=== PATIENT | female | born 1950 | race Caucasian/White ===

== ENCOUNTER 2017-05-01 02:10 | Inpatient (IN) | payer MEDICARE, MEDICAID ==
--- NOTE | 2017-04-28 16:46 | HISTORY AND PHYSICAL ---
DATE OF ADMISSION: May 01, 2017 IDENTIFICATION AND CHIEF COMPLAINT Jenn is a 67-year-old woman with the chief complaint of bilateral knee pain and disability. HISTORY OF PRESENT ILLNESS The patient has a longstanding history of progressive symptoms and disability related to end-stage knee arthritis. Surgery is indicated to relieve pain and improve function after failure of nonoperative measures. PAST MEDICAL HISTORY Notable for generally good medical health. PAST SURGICAL HISTORY Notable for times three. CURRENT MEDICATIONS * Cerebrex 100 mg b.i.d. * Tramadol as needed. * Ambien 10 mg at bedtime for sleep. ALLERGIES She has no true drug allergies. FAMILY HISTORY Noncontributory. SOCIAL HISTORY Negative for tobacco use. She drinks alcohol two to three beverages per week. She denies abuse. REVIEW OF SYSTEMS Negative. PHYSICAL EXAMINATION GENERAL: This is a well-developed, well-nourished female who appears stated age. HEENT: Normocephalic, atraumatic. NECK: Supple. LUNGS: Clear. HEART: Regular. ABDOMEN: Soft. ORTHOPEDIC: Both knees have effusions and crepitus, stiff at end-range. Gross stability with good extension and flexion intact. DIAGNOSTIC DATA Radiographs demonstrate end-stage DJD in both knees. ASSESSMENT Bilateral knee end-stage degenerative joint disease, progressive, painful, and debilitating, refractory to conservative care. PLAN Per patient request, we are going to proceed with single-stage bilateral knee replacements. The nature of this procedure, risks, benefits, and the anticipated rehab course were reviewed, as well as the relative risks and benefits of single knee replacement which is staged versus doing both at the same time. The risks of the procedure and treatment are not limited to , major medical or anesthetic complications, infection, neurovascular injury, blood transfusion, stiffness, scarring, fracture, tendon rupture, instability, implant loosening, migration, or failure, persistent or recurrent pain, need for additional surgery, and others unforeseen. She understands and wishes to proceed. Signed permit is placed in the chart. No guarantees were given or implied. ADRIAN
[2017-04-30 15:33] LABS: INR 0.99
[2017-05-01] VITALS (7 sets, daily range): BP systolic 95–162; BP diastolic 61–129
[~2017-05-01] VITALS: Ht 170.2 cm; Wt 83.5 kg
[~2017-05-01 02:10] MED LIST: CELE-1 PO; MULT1CAP59 PO; TRAM-420 PO; ZOLP-350 PO
[2017-05-01] MEDS ORDERED: LIDOCAINE MPF 1% 5 ML VIAL ONE (10:41)
[2017-05-01] MEDS ORDERED: DEXAMETHASONE SOD 4 MG/ML VIAL ONE (10:41)
[2017-05-01] MEDS ORDERED: ONDANSETRON 4 MG/2 ML VIAL ONE (10:41)
[2017-05-01] MEDS ORDERED: MORPHINE PF 5 MG/10 ML AMP ONE (10:41)
[2017-05-01] MEDS ORDERED: PROPOFOL EMUL(*) 10MG/ML 20 ML 20 ML ONE (10:41)
[2017-05-01] MEDS ORDERED: fentaNYL CITR 100 MCG/2 ML AMP ONE ×2 (10:42→14:25)
[2017-05-01] MEDS ORDERED: DEXTROSE 5% IV ONE (12:15)
[2017-05-01] MEDS ORDERED: LIDOCAINE/SOD BICARB 8.4% SYR ID ONE (12:15)
[2017-05-01] MEDS ORDERED: MIDAZOLAM 2 MG/2 ML VIAL IVP PRN (12:15)
[2017-05-01] MEDS ORDERED: TRANEXAMIC AC 1000 MG/10ML SDV 1,000 MG in DEXTROSE 5% 50 ML BAG 50 ML IV ONE (12:15)
[2017-05-01] MEDS ORDERED: FAMOTIDINE 20 MG TAB PO ONE (12:15)
[2017-05-01] MEDS ORDERED: TRANEXAMIC AC IV ONE (12:15)
[2017-05-01] MEDS ORDERED: ceFAZolin(*) 2GM/D5W 50ML 50 ML IVPB ONE (12:15)
[2017-05-01] MEDS ORDERED: cloNIDine EPIDUR INJ 100MCG/ML 40 MCG, ROPIVACAINE 0.5% 20 ML VIAL 25 ML, EPINEPHrine H... INJ ONE ×2 (12:15)
[2017-05-01] MEDS ORDERED: NORMOSOL R SOLN(*) 1000 ML BAG 1,000 ML IV PRN ×2 (12:15→16:15)
[2017-05-01] MEDS ORDERED: ACETAMINOPHEN(*)1000 MG/100 ML 100 ML IVPB ONE (12:33)
[2017-05-01] MEDS ORDERED: LACTATED RINGER 3000 ML BAG IR ONE (13:36)
--- NOTE | 2017-05-01 16:07 | RADIOLOGY IMAGING REPORT ---
FAC[place] [facility] [place]IENT NAME: Jenn Esparza : 1950 MR: [id number] V: [id number] EXAM DATE: ORDERING PHYSICIAN: CASEY HOLBROOK TECHNOLOGIST: Location: [facility] [place] Patient: Jenn Esparza : 1950 Visit/Account:[id number] Date of Sevice: 05/01/2017 KNEE LIMITED LEFT, KNEE LIMITED RIGHT Indication: Bilateral postoperative knees Comparison: None available Findings: Patient is undergone bilateral knee replacements. On the left, three part total knee arthroplasty sh ows normal postoperative changes. Components appear well seated. On the right, similar postoperativ e changes are present from three part replacement. Components are well seated. IMPRESSION: 1. Uncomplicated appearing bilateral three-part TKA Report Dictated By: Maik Rodriguez at 05/01/2017 4:02 PM Report E-Signed By: Maik Rodriguez at 05/01/2017 4:03 PM WSN:[id number]
--- NOTE | 2017-05-01 16:07 | RADIOLOGY IMAGING REPORT ---
FACILITY: PATIENT NAME: Jenn Esparza : 1950 MR: [id number] V: [id number] EXAM DATE: ORDERING PHYSICIAN: CASEY HOLBROOK TECHNOLOGIST: Location: [facility] [place] Patient: Jenn Esparza : 1950 Visit/Account:[id number] Date of Sevice: 05/01/2017 KNEE LIMITED LEFT, KNEE LIMITED RIGHT Indication: Bilateral postoperative knees Comparison: None available Findings: Patient is undergone bilateral knee replacements. On the left, three part total knee arthroplasty sh ows normal postoperative changes. Components appear well seated. On the right, similar postoperativ e changes are present from three part replacement. Components are well seated. IMPRESSION: 1. Uncomplicated appearing bilateral three-part TKA Report Dictated By: Maik Rodriguez at 05/01/2017 4:02 PM Report E-Signed By: Maik Rodriguez at 05/01/2017 4:03 PM WSN:[id number]
[2017-05-01] MEDS ORDERED: BENZOCAINE/MENTHOL 1 EACH LOZG PO PRN (16:15)
[2017-05-01] MEDS ORDERED: ACETAMINOPHEN 325 MG TAB PO PRN (16:15)
[2017-05-01] MEDS ORDERED: diphenhydrAMINE 25 MG CAP PO PRN (16:15)
[2017-05-01] MEDS ORDERED: diphenhydrAMINE 50 MG/ML VIAL IVP PRN (16:15)
[2017-05-01] MEDS ORDERED: BISACODYL 10 MG SUPP PR PRN (16:15)
[2017-05-01] MEDS ORDERED: FLUSH 10 ML SYR IVP PRN (16:15)
[2017-05-01] MEDS ORDERED: MAGNESIUM HYDROXIDE* 30ML UDCP PO PRN (16:15)
[2017-05-01] MEDS: CELECOXIB 200 MG CAP PO SCH ×2 (17:00→21:30)
[2017-05-01] MEDS: PROMETHAZINE 25 MG/ML 1 ML AMP IVP PRN (19:13)
[2017-05-01] MEDS: ceFAZolin 1 GM VIAL IVP SCH (20:49)
[2017-05-01] MEDS: APAP/HYDROCODONE 325/7.5 TAB PO PRN ×2 (20:49→21:46)
--- NOTE | 2017-05-01 22:37 | Hospitalist Progress Note ---
Subjective Progress Notes Subjective No cp/sob. No concerns from patient or staff. 2350cc of crystalloid, TXA dexamethasone and ephedrine given intra-op. Physical Exam Vital Signs Date Time Temp Pulse Resp B/P (MAP) Pulse Ox O2 Delivery O2 Flow Rate FiO2 05/01/17 17:00 57 12 99 05/01/17 16:58 98.1 128/71 (90) Nasal Cannula 2.0 Intake and Output 05/02/17 07:00 Intake Total 2550 ml Output Total 250 ml Balance 2300 ml Intake IV Total 2550 ml Output Emesis 250 ml # Voids 1 General Appearance: Alert, Awake, No Acute Distress Cardiovascular: Regular Rate and Rhythm Respiratory: Clear to Auscultation Extremities: No Edema Assessment and Plan Problems: (1) Status post knee replacement Status: Acute Assessment & Plan: No CV/pulmonary issues. The patient denies any h/o DVT/PE. The patient to be on ASA 325mg a day for blood clot prevention for 30 days after surgery. (2) Insomnia Status: Chronic Assessment & Plan: Continue Ambien prn. Problem Qualifiers (1) Status post knee replacement: Laterality: bilateral Qualified Codes: Z96.653 - Presence of artificial knee joint, bilateral JENNIFER TELLES MD May 01, 2017 22:37
[2017-05-01] MEDS: ZOLPIDEM TARTRATE 5 MG TAB PO PRN (22:47)
[2017-05-02 02:35] VITALS: BP 95/53
[2017-05-02] MEDS: APAP/HYDROCODONE 325/7.5 TAB PO PRN ×4 (02:37→15:59)
[2017-05-02] MEDS: ceFAZolin 1 GM VIAL IVP SCH ×2 (04:45→13:55)
[2017-05-02] MEDS ORDERED: MORPHINE 2 MG/ML SYR IVP ONE (07:15)
[2017-05-02] MEDS: FAMOTIDINE 20 MG TAB PO SCH ×2 (07:25→20:42)
[2017-05-02] MEDS: CELECOXIB 200 MG CAP PO SCH ×2 (07:25→17:19)
[2017-05-02] MEDS: DIAZEPAM 5 MG TAB PO PRN ×2 (07:25→13:27)
[2017-05-02 07:29] VITALS: BP 111/64
--- NOTE | 2017-05-02 07:41 | Hospitalist Progress Note ---
Subjective Progress Notes Subjective Pain control is not that good. She says the oral meds do not work as well as the IV. She would like to use another dose or two of IV med. Aspirin bothers her stomach in the dose of 325 mf daily and has ordered 81 mg po bid in addition to pepcid 20 mg po daily. Physical Exam Vital Signs Date Time Temp Pulse Resp B/P (MAP) Pulse Ox O2 Delivery O2 Flow Rate FiO2 05/02/17 07:29 97.7 68 16 111/64 (80) 93 Room Air 05/02/17 02:35 1.0 General Appearance: Alert, Awake, No Acute Distress, Afebrile Cardiovascular: Regular Rate and Rhythm Respiratory: Clear to Auscultation Extremities: Other (No evidence for TP.) Psych: Alert & Oriented X3, Appropriate Mood & Affect Result Diagram: 05/02/17 0611 05/02/17 0611 Assessment and Plan Problems: (1) Status post knee replacement Status: Acute Assessment & Plan: No CV/pulmonary issues. The patient denies any h/o DVT/PE. Aspirin has raul changed to 81 mg po bid in deference to GI tract and pepcid 20 mg po daily for acid reduction. Pain not well controlled so will use one dose of morphine 2mg IV then back to orals. Check Hgb this morning since she had bilateral knee replacements done. (2) Insomnia Status: Chronic Assessment & Plan: Continue Ambien prn. Time Spent on Plan of Care: < 30 min Exam Sepsis Risk: No Definite Risk Problem Qualifiers (1) Status post knee replacement: Laterality: bilateral Qualified Codes: Z96.653 - Presence of artificial knee joint, bilateral JOSÉ MANUEL MERINO MD FACP May 02, 2017 07:41
[2017-05-02] MEDS: ASPIRIN 81 MG ENTERIC COATED PO SCH ×2 (08:13→17:19)
--- NOTE | 2017-05-02 08:28 | LEVENE TKA ---
EVENT DATE: May 01, 2017 SURGEON: Jose Mathew MD ANESTHESIOLOGIST: Randy Stanton MD ANESTHESIA: General plus spinal. SENIOR BENEFITS ANALYST: Lang Wallace PA-C PREOPERATIVE DIAGNOSIS Bilateral knee degenerative joint disease. POSTOPERATIVE DIAGNOSIS Bilateral knee degenerative joint disease. PROCEDURE PERFORMED Bilateral single stage total knee arthroplasty. ESTIMATED BLOOD LOSS Minimal. DRAINS None. SPECIMENS None. COMPLICATIONS No apparent. TOURNIQUET TIME 46 minutes on the left, 48 minutes on the right. IMPLANTS USED On the left are Abrahan Triathlon knee system, size 4, left PS femur size 4, standard tibial baseplate, 33 mm universal symmetric all polyethylene patella button and a 13 mm PS tibial tray liner. Polyethylene is X3. On the right, we have a 4 right PS femur, 4 standard tibial baseplate, 33 mm universal symmetric all polyethylene patella button and a 13 mm PS tibial tray liner. INDICATIONS The patient has intractable pain and disability related to end-stage knee arthritis in both knees. Surgery is indicated to relieve symptoms after failure of nonoperative measures. DESCRIPTION OF PROCEDURE The patient was taken to the operating room and placed supine on the operating table. General anesthesia was induced after spinal block was administered by the anesthesiologist. Antibiotics were administered IV. Both lower extremities were simultaneously prepped and draped in the usual sterile fashion for orthopedic surgery. The right limb was covered with a stockinette. Left knee was operated no first. Limb was exsanguinated with an Esmarch bandage, tourniquet inflated to 250 mmHg. A midline longitudinal incision was made and carried down through the skin and subcu to the extensor mechanism. A full- thickness flap was developed far enough medially to allow medial parapatellar arthrotomy to be performed. Patella was everted. The knee was brought into a flexed position. Fat pad, anterior horns of the menisci and the cruciate ligaments were debrided. Subperiosteal medial release was initiated in titrated fashion to start to balance the knee. Step drill was used to enter the distal femur. A 10-inch long alignment guide was used to engage the isthmus. Cut set for 6 degrees valgus relative to the anatomic axis. A 10 mm resection block was applied, pinned. Distal femoral cut was made with an oscillating saw. The AP sizing guide was applied to the distal femur, positioned for 3 degrees of external rotation relative to the posterior condyle. A size 4 was optimal without risk of notching. The four-in-one cutting block was applied. Anterior, posterior, posterior chamfer and anterior chamfer cuts were made respectively. PS block was applied, centered mediolateral. Bone was removed for the box. Attention was turned to tibial preparation. The extramedullary guide was applied and positioned for varus, valgus, posterior slope and rotation. This was set to resect 9 mm from the relatively intact lateral tibial plateau. It is dropped down a couple of millimeters to ensure an adequate cute. Block was pinned. Extramedullary alignment check was made. Cut was made with an oscillating saw. Osteophytes were removed. After osteophyte removal and removal of posterior condylar bone, gaps were balanced and symmetric with no additional release required. A size 4 tibial base plate provides bony coverage without soft tissue overhang. This was inserted along with a trial liner and trial femur. Knee was brought to full extension. Patella was taken from a starting thickness of 22 to a residual of 14 with a patellar clamp and an oscillating saw. The 33 provided optimal bony coverage without soft tissue overhang. Lug holes were drilled. Patella tended to track in a sublux position. A few bands were released, but it was evident that a full inside out lateral release would be performed. This was performed with electrocautery along the margin of the patella, subsequently tracking was good. Care was taken to ensure hemostasis inside a lateral superior genicular vessel. Final tibial preparation consisted of ensuring appropriate rotational and translational position of the component. The fin was punched. Surfaces were copiously lavaged. A mix of polymethylmethacrylate was made. Components were cemented in a single stage. When the cement was fully polymerized, tourniquet was deflated, hemostasis ensured. The 13 PS tibial tray liner fills up the gap ideally, allowing the knee to drop to full extension without hyperextension, providing optimal soft tissue tension and stability. Tray is lavaged and dried, and the actual liner was locked into the baseplate. Joint was reduced. Arthrotomy was closed in flexion with #2 Ethibond, subcu with 3-0 Vicryl, and skin with surgical kathrin. An identical procedure was then performed on the contralateral knee with the exception that a right-sided femur is used. At the completion of this procedure and identical closure, both knees were sterilely dressed, and patient was awakened from the anesthesia and taken to the recovery room in stable condition, having tolerated the procedure well. Plan is for standard TK rehab protocol. ADRIAN
[2017-05-02] MEDS ORDERED: ASPIRIN 325 MG TAB PO SCH (09:00)
[2017-05-02 11:01] VITALS: BP 99/59
[2017-05-02 15:13] VITALS: BP 115/71
[2017-05-02] MEDS ORDERED: KETOROLAC 15 MG/ML VIAL IVP ONE (15:25)
[2017-05-02] MEDS: MORPHINE 2 MG/ML SYR IVP PRN (15:34)
[2017-05-02 16:35] VITALS: Ht 170.2 cm; Wt 83.5 kg
[2017-05-02] MEDS: PROMETHAZINE 25 MG/ML 1 ML AMP IVP PRN (18:13)
[2017-05-02 18:24] VITALS: BP 126/70
[2017-05-02] MEDS: ZOLPIDEM TARTRATE 5 MG TAB PO PRN (21:07)
[2017-05-03] MEDS: APAP/HYDROCODONE 325/7.5 TAB PO PRN ×5 (00:42→21:54)
[2017-05-03] MEDS: MORPHINE 2 MG/ML SYR IVP PRN ×4 (01:46→20:23)
[2017-05-03 03:12] VITALS: BP 158/74
[2017-05-03] MEDS: DIAZEPAM 5 MG TAB PO PRN ×3 (03:22→17:21)
[2017-05-03 06:30] LABS: PLATELET COUNT, AUTOMATED 197 K/uL (150-450)
--- NOTE | 2017-05-03 07:19 | Hospitalist Progress Note ---
Subjective Progress Notes Subjective Doing well aside from persistent pain in both knees with L>R. Morphine works the best for the pain. Doing well with PT. Physical Exam Vital Signs Date Time Temp Pulse Resp B/P (MAP) Pulse Ox O2 Delivery O2 Flow Rate FiO2 05/03/17 05:41 86 05/03/17 03:12 98.2 80 12 158/74 (102) Room Air 05/02/17 20:40 1.0 Intake and Output 05/04/17 07:00 # Voids 1 General Appearance: Alert, Awake, No Acute Distress, Afebrile Cardiovascular: Regular Rate and Rhythm Respiratory: Clear to Auscultation Integumentary: Other (Incisions (bilateral knees) look excellent with no redness, drainage. No calf tenderness.) Psych: Alert & Oriented X3, Appropriate Mood & Affect Result Diagram: 05/03/1734 05/03/17533 Assessment and Plan Problems: (1) Status post knee replacement Status: Acute Assessment & Plan: No CV/pulmonary issues. The patient denies any h/o DVT/PE. Aspirin has raul changed to 81 mg po bid in deference to GI tract and pepcid 20 mg po daily for acid reduction. Pain not well controlled so will continue to use morphine 2mg IV then back to orals when possible. Hgb up to 12.2 with normal BMP. Plan is to transfer to [facility] tomorrow for continued rehab. (2) Insomnia Status: Chronic Assessment & Plan: Continue Ambien prn. Time Spent on Plan of Care: < 30 min Exam Sepsis Risk: No Definite Risk Problem Qualifiers (1) Status post knee replacement: Laterality: bilateral Qualified Codes: Z96.653 - Presence of artificial knee joint, bilateral JOSÉ MANUEL MERINO MD FACP May 03, 2017 07:19
[2017-05-03 07:42] VITALS: BP 130/81
[2017-05-03] MEDS: ASPIRIN 81 MG ENTERIC COATED PO SCH ×2 (07:53→17:21)
[2017-05-03] MEDS: CELECOXIB 200 MG CAP PO SCH ×2 (07:53→17:21)
[2017-05-03] MEDS: FAMOTIDINE 20 MG TAB PO SCH ×2 (07:53→20:22)
[2017-05-03 10:51] VITALS: BP 112/73
[2017-05-03 15:11] VITALS: BP 126/55
[2017-05-03 18:36] VITALS: BP 138/76
[2017-05-03] MEDS: ZOLPIDEM TARTRATE 5 MG TAB PO PRN (21:55)
[2017-05-03 23:07] VITALS: BP 147/82
[2017-05-04 02:32] VITALS: BP 129/79
[2017-05-04] MEDS: DIAZEPAM 5 MG TAB PO PRN ×2 (02:34→09:03)
[2017-05-04] MEDS: APAP/HYDROCODONE 325/7.5 TAB PO PRN ×2 (04:32→09:03)
--- NOTE | 2017-05-04 08:05 | Hospitalist Progress Note ---
Subjective Progress Notes Subjective No cp/sob. Knees are sore. Physical Exam Vital Signs Date Time Temp Pulse Resp B/P (MAP) Pulse Ox O2 Delivery O2 Flow Rate FiO2 05/04/17 02:32 97.9 82 16 129/79 (96) 92 Room Air 05/02/17 20:40 1.0 General Appearance: Alert, Awake, No Acute Distress Result Diagram: 05/03/17 0534 05/04/17 0537 Assessment and Plan Problems: (1) Status post knee replacement Status: Acute Assessment & Plan: No CV/pulmonary issues. The patient denies any h/o DVT/PE. Aspirin has been changed to 81 mg po bid in deference to GI tract and pepcid 20 mg po daily for acid reduction. Plan is to transfer to [facility]. (2) Insomnia Status: Chronic Assessment & Plan: Continue Ambien prn. Exam Sepsis Risk: No Definite Risk Problem Qualifiers (1) Status post knee replacement: Laterality: bilateral Qualified Codes: Z96.653 - Presence of artificial knee joint, bilateral JENNIFER TELLES MD May 04, 2017 08:05
[2017-05-04] MEDS: ASPIRIN 81 MG ENTERIC COATED PO SCH (09:03)
[2017-05-04] MEDS: FAMOTIDINE 20 MG TAB PO SCH (09:03)
[2017-05-04] MEDS: CELECOXIB 200 MG CAP PO SCH (09:03)
[2017-05-04 09:05] VITALS: BP 136/74
== END 2017-05-04 10:05 | DRG 462 ==
LOC: OR 02:10 → MED 17:03
PROVIDERS: ADMIT Orthopaedic Surgery; ATTEND Orthopaedic Surgery
PROC: 0SRC0J9 Replacement of Right Knee Joint with Synthetic Substitute, Cemented, Open Approach (ICD-10-PCS; 2017-05-01)
PROC: 0SRD0J9 Replacement of Left Knee Joint with Synthetic Substitute, Cemented, Open Approach (ICD-10-PCS; principal; 2017-05-01 12:41)
DX: M17.0 Bilateral primary osteoarthritis of knee (principal); G47.00 Insomnia, unspecified; Z87.440 Personal history of urinary (tract) infections
CPT/HCPCS: 36415; 82310; 82374; 82435; 82565; 82947; 84132; 84295; 84520; 85014; 85018; 85025; 85610; 86850; 86900; 86901; 97161; C1713; C1776; J0131; J0171; J0690; J0735; J1100; J1885; J2001; J2250; J2270; J2405; J2550; J2704; J2795; J3010; J7050; J7060

== ENCOUNTER 2017-05-04 10:05 | Inpatient (IN) | payer MEDICARE, MEDICAID ==
[2017-05-02 16:35] VITALS: Ht 170.2 cm; Wt 83.5 kg
[~2017-05-04] VITALS: Ht 170.2 cm; Wt 83.5 kg
[2017-05-04 10:40] VITALS: BP 115/69
[2017-05-04] MEDS ORDERED: MAGNESIUM HYDROXIDE* 30ML UDCP PO PRN (10:49)
[2017-05-04] MEDS ORDERED: ACETAMINOPHEN 325 MG TAB PO PRN (10:49)
--- NOTE | 2017-05-04 12:05 | Consultant Pharmacy Review ---
Dry Ice Machine Operator Review Medication Review Do All Mecications have a Diag: Yes Beers Criteria Medication 2014 Non-BZD Hypnotics: Zolpidem (5-10 MG HS PRN SLEEP. USE LOWEST DOSE POSSIBLE AND REVIEW NEED FOR EVERY 2 WEEKS.) Pain Medications: Aspirin >325 mg/d (ASA 325 MG EC QDAY AND ASA 81 MG EC BID; INCREASED BLEEDING RISK.) Other General Cautions Lexicomp Interaction Analysis A = No known interaction C = Monitor therapy X = Avoid combination B = No action needed D = Consider therapy modification Drugs in this analysis: Acetaminophen; Ambien; Aspirin; CeleBREX; Lortab; Magnesium Hydroxide; OxyCONTIN; Pepcid * Drug-Drug Interactions * D Ambien (TELEPHONE ORDER SUPERVISOR Depressants) Lortab (HYDROcodone) D Ambien (TELEPHONE ORDER SUPERVISOR Depressants) OxyCONTIN (OxyCODONE) D Ambien (Zolpidem) Lortab (TELEPHONE ORDER SUPERVISOR Depressants) Depends on Brand Name D Ambien (Zolpidem) OxyCONTIN (TELEPHONE ORDER SUPERVISOR Depressants) Depends on Brand Name D Aspirin CeleBREX (Nonsteroidal Anti-Inflammatory Agents (LORENZO-2 Selective)) Depends on Dose D Lortab (TELEPHONE ORDER SUPERVISOR Depressants) OxyCONTIN (OxyCODONE) D Lortab (HYDROcodone) OxyCONTIN (TELEPHONE ORDER SUPERVISOR Depressants) B Acetaminophen Lortab (Opioid Analgesics) B Acetaminophen OxyCONTIN (Opioid Analgesics) B Aspirin (Salicylates) Magnesium Hydroxide (Antacids) Depends on Duration B CeleBREX (Nonsteroidal Anti-Inflammatory Agents) Magnesium Hydroxide ( Antacids) B Magnesium Hydroxide (Antacids) Pepcid (Histamine H2 Receptor Pneumococcal Vaccine HX Pneumo Vac ([id number]): No HX Pneumo Vac (Pneumovax): No Comments Regarding the Review Patient has refused the influenza vaccine; if she is agreeable she may receive the prevnar 13 followed by the pnuemovax 23 one year later. Between the tylenol and lortab, do not exceed 4 gm of acetaminophen per 24 hours. ANDREW LUNA May 04, 2017 12:05
[2017-05-04] MEDS: APAP/HYDROCODONE 325/7.5 TAB PO PRN ×2 (14:02→18:06)
--- NOTE | 2017-05-04 14:50 | OT ECF NOTE ---
Type of Note: Initial Note Primary Medical Diagnosis: Bilateral TKA Occupational Therapy Evaluation Date: 05/04/17 SUBJECTIVE: Prior Hospitalization: H 05/01/17 thru 05/04/17 Prior Level of Function: Independent with all ADLs/IADLs Prior Living Status: Pt resides in a motel, Assist by friends Community Services: No known needs Home Accessibility: All needs on one level, Tub/shower combination Equipment Owned: Rollator Medical Complications/Past Medical History: Insomnia Psychosocial Support: Friends that reside in [place] Pain Scale (0-10): 8/10 with ambulation. Pt supine in bed with ice placed over bilateral knees. No numerical rating for supine in bed provided. Pt appears slightly confused with difficulty appropriately answering questions. Pain medication prior to OT arrival. Will continue to assess as tx progresses. OBJECTIVE: Strength: MMT: Right Left Shoulder Flexion WFL WFL Elbow Flexion WFL WFL Wrist Extension WFL WFL Circuit Clerk WFL WFL (5= normal, 4= good, 3= fair, 2= poor, 1= trace) ROM: Both upper extremities, WFL Sensation: Intact, No concerns Functional Transfer: Assistive Device: Front wheeled walker Transfer Ability: CGA ADL: Upper body dressing: Assistive device: Upper body dressing ability: Set-up Lower body dressing: Assistive device: Lower body dressing ability: Moderate assistance Toileting: Assistive device: Toilet Riser Toileting ability: CGA Grooming/hygiene: Assistive device: Grooming ability: N/T Bathing: Assistive device: Bathing ability: N/T Standardized Assessment: Brennan Index of Activities of Daily Livin/20 on initial evaluation (05/04). ASSESSMENT: Jenn presents to ECF s/p bilateral knee replacement requiring assist for all ADLs/mobility. At [facility], pt was (I) with all ADLs/IADLs. She resides alone and will benefit from skilled OT services to optimize (I) and safety with ADLs. Pt will also benefit from education regarding appropriate AE needs (i.e. extended tub transfer bench). Problem List/Current Limitations: Pain Decreased strength Decreased ROM Short Term Goals: 1) Pt will be Mod (I) LB dressing. (I) UB dressing. 2) Pt will be Mod (I) toileting. 3) Pt will be (I) grooming/hygiene. 4) Pt will be Mod (I) tub transfer/shower. 5) Pt Brennan Index of ADLs score will increase by 2 points. [facility] Goals: Return home with HH vs. outpatient PT Patient Goals: Return to PLOF Rehabilitation Prognosis: Good Barriers to Discharge: Pain PLAN: The patient will benefit from skilled occupational therapy services 5 times per week for 2 weeks including: Ther ex ADL training Safety training Ther act IADL training Transfer training Adaptive equip training Bed mobility Energy conservation Thank you for this referral. If you have any questions, concerns, or comments about this report or plan, please contact me at . Jennifer Khan MS, OTR/L Occupational Therapist ADRIAN
--- NOTE | 2017-05-04 16:44 | PT ECF NOTE ---
Type of Note: Initial Note Primary Medical Diagnosis: s/p B) TKA, pt is WBAT on B) LEs Physical Therapy Evaluation Date: 05/04/17 SUBJECTIVE: Prior Hospitalization: [facility] 05/01/17-05/04/17 Prior Level of Function: Independent Prior Living Status: Motel, Assist by friends Community Services: No known needs Home Accessibility: All needs on one level- pt plans to d/c to [facility] with occasional assistance from friends. She will use public transportation to access OP PT appts. Equipment Owned: Fluency Medical Complications/Past Medical History: See EMR Psychosocial Support: Supportive friends Pain Scale (0-10): 12/07 OBJECTIVE: Strength: Not formally assessed d/t recent B) TKAs, pt lacks full AROM against gravity of bilateral LEs ROM: PROM: R) LE: 5-75 degrees L) LE: 4-84 degrees Sensation: WNL Other Neuro findings: None Bed Mobility: Stanley with HOB elevated Transfers: CGA for walker stabilization, with RW Gait: SBA x 30' with RW Stairs: NT Timed Up and Go (>12 seconds indicated increased risk for falls): 55 seconds ASSESSMENT: Pt requires Stanley for bed mobility, sit to supine. Pt able to independently move up/down and side to side in bed with UE support. CGA provided for walker stabilization prior to STS transfers with pt demonstrating good LE ROM to assist with rising to stand. Ambulation x30' with RW, TUG test completed in 55 seconds, which indicates an increased risk of falls. The patient will benefit from skilled PT services in order to increase independence with functional mobility to allow for safe d/c to motel at Randy level. Problem List/Current Limitations: Pain Decreased activity jasmin Decreased strength Decreased ROM Decreased balance Short Term Goals: 1: Pt to complete bed mobility with Randy 2: Pt to complete transfers with Randy and least restrictive AD 3: Pt to ambulate 250' with Randy and least restrictive AD 4: Pt to asc/desc platform stair to simulate curb in community with SBA 5: Pt to be I) with use of CPM Secretarial Stenographer Goals: Pt to d/c to motel with decreased risk of falls and need of assistance from others Patient Goals: "function better" Rehabilitation Prognosis: Good Barriers for Discharge: High levels of reported pain PLAN: The patient will benefit from skilled physical therapy services 5 times per week for 2 weeks including: Therapeutic Exercise Therapeutic Activities Transfer Training Gait Training Stair Training Manual Therapy Safety Training Neuromuscular Re-educ. Pt/Caregiver Training Bed Mobility Thank you for this referral. If you have any questions, concerns, or comments about this report or plan, please contact me at . Valeria Love, PT, DPT [facility]
[2017-05-04 16:45] VITALS: BP 158/85
[2017-05-04] MEDS: CELECOXIB 200 MG CAP PO SCH (17:33)
[2017-05-04] MEDS: ASPIRIN 81 MG ENTERIC COATED PO SCH (17:33)
[2017-05-04] MEDS: FAMOTIDINE 20 MG TAB PO SCH (20:41)
[2017-05-04] MEDS: ZOLPIDEM TARTRATE 5 MG TAB PO PRN (21:19)
[2017-05-05] MEDS: APAP/HYDROCODONE 325/7.5 TAB PO PRN ×5 (00:02→21:06)
[2017-05-05 07:35] VITALS: BP 136/78
[2017-05-05] MEDS: FAMOTIDINE 20 MG TAB PO SCH ×2 (08:20→21:06)
[2017-05-05] MEDS: ASPIRIN 81 MG ENTERIC COATED PO SCH ×2 (08:20→17:18)
[2017-05-05] MEDS: CELECOXIB 200 MG CAP PO SCH ×2 (08:20→17:18)
[2017-05-05] MEDS ORDERED: ASPIRIN 325 MG ENTERIC COATED PO SCH (09:00)
--- NOTE | 2017-05-05 12:15 | Medical Nutrition Therapy ---
Nutrition Anthropometrics Height (Inches): 67.00 Height (Calculated Centimeters: 170.896240 Weight (Pounds): 184 Weight (Calculated Kilograms): 83.461 BMI Calculated: 28.82 Gume Nutrition Score: Adequate Gume Nutrition Risk Score: 20 Dietary Referral Nutrition Risk Factors: Nutrition Risk Comment: Physical Findings Physical Appearance: Overweight BMI 25-29 Skin Appearance Skin Appearance: Edema Edema Location Modifier: Edema Location: Type of Edema: Degree of Edema: Gastrointestinal Symptoms GI Symtoms: Tube Present: Bowel Sounds: Recent Bowel Pattern: Stool Characteristics: Nutrition/Food History No Significant Nutr. HX Nutritional Diagnosis Nutritional Risk Acuity 4: Good Appetite Past Medical History: Arthritis, insomnia, C section X3, bilateral knee replacements Nutritional Acuity: 4-Low Nutrition Diagnosis: Over-weight/Obesity Nutrition Etiology: Physiological Causes, Inappropriate Food Choice Nutrition Problem/Etiology/Sym: Overweight/Obesity related to excessive energy intake and physical inactivity d/t halfway knee arthritis AEB BMI of 28.8 and physical limitations leading to the need for knee replacements Energy Requirement: 1840 ([place]-St Jeor: Actual BW X 1.3) Protein Requirement: 67 (Actual BW Kg X .8) Fluid Requirement: 1840 Diet Type: Diet as Tolerated HASEEB/REG Nutrition Intervention: Cont diet as ordered Food Likes: she will eat fish Nutrition Monitoring & Eval Nutrition Goals: Eat 50-100% Meal RD Patient Assessment Time: [address] Assessment Type: RD Assessment Patient Nutrition Acuity: 4-Low Follow Up Date: May 08, 2017 Nutritional Comment: Pt originally admitted for single-stage bilateral knee replacements and transferred to [facility] for continued rehab. Pt overwt with BMI of 28.8. Receiving HASEEB and consuming 100% of meals. Follow labs, intake, etc. HILARIA CRISOSTOMO May 05, 2017 12:15
[2017-05-05 16:40] VITALS: BP 155/87
[2017-05-05] MEDS: ZOLPIDEM TARTRATE 5 MG TAB PO PRN (21:07)
[2017-05-06] MEDS: APAP/HYDROCODONE 325/7.5 TAB PO PRN ×4 (01:57→16:57)
[2017-05-06 07:45] VITALS: BP 143/86
[2017-05-06] MEDS: CELECOXIB 200 MG CAP PO SCH ×2 (08:37→16:56)
[2017-05-06] MEDS: ASPIRIN 81 MG ENTERIC COATED PO SCH ×2 (08:37→16:56)
[2017-05-06] MEDS: FAMOTIDINE 20 MG TAB PO SCH ×2 (08:37→20:19)
[2017-05-06 16:50] VITALS: BP 140/80
[2017-05-06] MEDS: ZOLPIDEM TARTRATE 5 MG TAB PO PRN (23:01)
[2017-05-07] MEDS: APAP/HYDROCODONE 325/7.5 TAB PO PRN ×5 (00:55→20:30)
--- NOTE | 2017-05-07 07:27 | HISTORY AND PHYSICAL ---
DATE OF ADMISSION: May 01, 2017 IDENTIFICATION AND CHIEF COMPLAINT Jenn is a 67-year-old woman with the chief complaint of bilateral knee pain and disability. HISTORY OF PRESENT ILLNESS The patient has a longstanding history of progressive symptoms and disability related to end-stage knee arthritis. Surgery is indicated to relieve pain and improve function after failure of nonoperative measures. PAST MEDICAL HISTORY Notable for generally good medical health. PAST SURGICAL HISTORY Notable for times three. CURRENT MEDICATIONS * Cerebrex 100 mg b.i.d. * Tramadol as needed. * Ambien 10 mg at bedtime for sleep. ALLERGIES She has no true drug allergies. FAMILY HISTORY Noncontributory. SOCIAL HISTORY Negative for tobacco use. She drinks alcohol two to three beverages per week. She denies abuse. REVIEW OF SYSTEMS Negative. PHYSICAL EXAMINATION GENERAL: This is a well-developed, well-nourished female who appears stated age. HEENT: Normocephalic, atraumatic. NECK: Supple. LUNGS: Clear. HEART: Regular. ABDOMEN: Soft. ORTHOPEDIC: Both knees have effusions and crepitus, stiff at end-range. Gross stability with good extension and flexion intact. DIAGNOSTIC DATA Radiographs demonstrate end-stage DJD in both knees. ASSESSMENT Bilateral knee end-stage degenerative joint disease, progressive, painful, and debilitating, refractory to conservative care. PLAN Per patient request, we are going to proceed with single-stage bilateral knee replacements. The nature of this procedure, risks, benefits, and the anticipated rehab course were reviewed, as well as the relative risks and benefits of single knee replacement which is staged versus doing both at the same time. The risks of the procedure and treatment are not limited to , major medical or anesthetic complications, infection, neurovascular injury, blood transfusion, stiffness, scarring, fracture, tendon rupture, instability, implant loosening, migration, or failure, persistent or recurrent pain, need for additional surgery, and others unforeseen. She understands and wishes to proceed. Signed permit is placed in the chart. No guarantees were given or implied. <Electronically signed by CASEY HOLBROOK MD> D/ [id number] BRADLEY/NANCI CC: CASEY HOLBROOK MD H&P ADDENDUM The above issues are resolving. Patient requires custodial care and/or skilled rehabilitation. Patient is ready for transfer to [facility]. Any change in condition is described below. MTDD
[2017-05-07 08:05] VITALS: BP 149/79
[2017-05-07] MEDS: FAMOTIDINE 20 MG TAB PO SCH ×2 (08:37→20:30)
[2017-05-07] MEDS: CELECOXIB 200 MG CAP PO SCH ×2 (08:37→17:41)
[2017-05-07] MEDS: ASPIRIN 81 MG ENTERIC COATED PO SCH ×2 (08:37→17:41)
--- NOTE | 2017-05-07 09:48 | Medical Nutrition Therapy ---
Nutrition Anthropometrics Height (Inches): 67.00 Height (Calculated Centimeters: 170.676062 Weight (Pounds): 184 Weight (Calculated Kilograms): 83.461 BMI Calculated: 28.82 Gume Nutrition Score: Adequate Gume Nutrition Risk Score: 20 Dietary Referral Nutrition Risk Factors: Nutrition Risk Comment: Physical Findings Physical Appearance: Overweight BMI 25-29 Skin Appearance Skin Appearance: Edema Edema Location Modifier: Edema Location: Type of Edema: Degree of Edema: Gastrointestinal Symptoms GI Symtoms: Tube Present: Bowel Sounds: Recent Bowel Pattern: Stool Characteristics: Nutritional Diagnosis Nutritional Risk Acuity 4: Good Appetite Past Medical History: Arthritis, insomnia, C section X3, bilateral knee replacements Nutritional Acuity: 4-Low Nutrition Diagnosis: Over-weight/Obesity Nutrition Etiology: Physiological Causes, Inappropriate Food Choice Nutrition Problem/Etiology/Sym: Overweight/Obesity related to excessive energy intake 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 AEB BMI of 28.8 and physical limitations leading to the need for knee replacements Energy Requirement: 1840 ([place]-St Jeor: Actual BW X 1.3) Protein Requirement: 67 (Actual BW Kg X .8) Fluid Requirement: 1840 Diet Type: Diet as Tolerated HASEEB/REG Nutrition Intervention: Cont diet as ordered Food Likes: she will eat fish Nutrition Monitoring & Eval Nutrition Goals: Eat 75-100% Meal Nutrition Follow-Up: Good Intake RD Patient Assessment Time: [address] Assessment Type: RD Re-Assessment Patient Nutrition Acuity: 4-Low Follow Up Date: May 15, 2017 Nutritional Comment: Pt originally admitted for single-stage bilateral knee replacements and transferred to [facility] for continued rehab. Pt overwt with BMI of 28.8. Receiving HASEEB and consuming 100% of meals. Follow labs, intake, etc. 05/07 Pt continues on HASEEB averaging 89% intakes of meals. No new labs or weight available. Will continue to monitor intake, labs, etc. TYRELL TSE May 07, 2017 08:23
[2017-05-07 17:40] VITALS: BP 153/93
[2017-05-07] MEDS: ZOLPIDEM TARTRATE 5 MG TAB PO PRN (23:32)
[2017-05-08] MEDS: APAP/HYDROCODONE 325/7.5 TAB PO PRN ×3 (06:18→17:42)
[2017-05-08 07:15] VITALS: BP 126/78
[2017-05-08] MEDS: CELECOXIB 200 MG CAP PO SCH ×2 (08:21→17:38)
[2017-05-08] MEDS: ASPIRIN 81 MG ENTERIC COATED PO SCH ×2 (08:21→17:38)
[2017-05-08] MEDS: FAMOTIDINE 20 MG TAB PO SCH ×2 (08:21→20:38)
[2017-05-08 16:20] VITALS: BP 156/83
[2017-05-09] MEDS: ZOLPIDEM TARTRATE 5 MG TAB PO PRN ×2 (00:06→23:54)
[2017-05-09] MEDS: APAP/HYDROCODONE 325/7.5 TAB PO PRN ×6 (00:07→23:53)
[2017-05-09] MEDS: CELECOXIB 200 MG CAP PO SCH ×2 (08:54→16:43)
[2017-05-09] MEDS: ASPIRIN 81 MG ENTERIC COATED PO SCH ×2 (08:54→16:44)
[2017-05-09] MEDS: FAMOTIDINE 20 MG TAB PO SCH ×2 (08:54→21:21)
[2017-05-09 09:24] VITALS: BP 151/95
--- NOTE | 2017-05-09 15:30 | Hospitalist Progress Note ---
Physical Exam Vital Signs Date Time Temp Pulse Resp B/P (MAP) Pulse Ox O2 Delivery O2 Flow Rate FiO2 05/09/17 11:00 94 Room Air 05/09/17 09:24 97.0 75 16 151/95 (113) Intake and Output 05/10/17 07:00 Intake Total 840 ml Balance 840 ml Intake Oral 840 ml # Voids 1 Assessment and Plan Problems: (1) Status post knee replacement Status: Acute Assessment & Plan: Transferred to [facility] for ongoing rehabilitation. See Dr. Mathew's notes for complete details regarding the procedure. On aspirin 81mg bid for DVT prophylaxis. (2) Insomnia Status: Chronic Assessment & Plan: Continue Ambien prn. Time Spent on Plan of Care: < 30 min Problem Qualifiers (1) Status post knee replacement: Laterality: bilateral Qualified Codes: Z96.653 - Presence of artificial knee joint, bilateral ANDREW EDGE MD May 09, 2017 15:30
--- NOTE | 2017-05-09 15:41 | Hospitalist Progress Note ---
Subjective Progress Notes Subjective No new complaints. Physical Exam Vital Signs Date Time Temp Pulse Resp B/P (MAP) Pulse Ox O2 Delivery O2 Flow Rate FiO2 05/09/17 11:00 94 Room Air 05/09/17 09:24 97.0 75 16 151/95 (113) Intake and Output 05/10/17 07:00 Intake Total 840 ml Balance 840 ml Intake Oral 840 ml # Voids 1 General Appearance: Alert, Awake, No Acute Distress Neuro: No Gross deficits Cardiovascular: Regular Rate and Rhythm Respiratory: Clear to Auscultation GI: Soft and Non-Tender Extremities: Warm, Perfused, Other Integumentary: Other (Both knee wounds bandaged.) Psych: Appropriate Mood & Affect Assessment and Plan Problems: (1) Status post knee replacement Status: Acute Assessment & Plan: [facility]. See Dr. Mathew's notes for complete details regarding the procedure. On aspirin 81mg bid for DVT prophylaxis. (2) Insomnia Status: Chronic Assessment & Plan: Continue Ambien prn. Time Spent on Plan of Care: < 30 min Problem Qualifiers (1) Status post knee replacement: Laterality: bilateral Qualified Codes: Z96.653 - Presence of artificial knee joint, bilateral ANDREW EDGE MD May 09, 2017 15:41
[2017-05-09] MEDS ORDERED: ZOLP-350 PO (15:42)
[2017-05-09 16:20] VITALS: BP 142/80
[2017-05-10] MEDS: APAP/HYDROCODONE 325/7.5 TAB PO PRN ×5 (04:20→23:51)
[2017-05-10 07:40] VITALS: BP 137/84
[2017-05-10] MEDS: ASPIRIN 81 MG ENTERIC COATED PO SCH ×2 (08:42→17:08)
[2017-05-10] MEDS: FAMOTIDINE 20 MG TAB PO SCH ×2 (08:43→21:19)
[2017-05-10] MEDS: CELECOXIB 200 MG CAP PO SCH ×2 (08:43→17:08)
--- NOTE | 2017-05-10 16:20 | OT ECF NOTE ---
Type of Note: Discharge Note Primary Medical Diagnosis: Bilateral TKA Occupational Therapy Evaluation Date: 05/04/17 SUBJECTIVE: Prior Hospitalization: [facility] 05/01/17 thru 05/04/17 Prior Level of Function: Independent with all ADLs/IADLs Prior Living Status: Pt resides in a motel, Assist by friends Community Services: No known needs Home Accessibility: All needs on one level, Tub/shower combination Equipment Owned: Rollator, Raised toilet seat, Extended tub transfer bench Medical Complications/Past Medical History: Insomnia Psychosocial Support: Friends that reside in [place] Pain Scale (0-10): 6/10 with ambulation. Pt supine in bed with ice placed over bilateral knees. No numerical rating for supine in bed provided. OBJECTIVE: Strength: MMT: Right Left Shoulder Flexion WFL WFL Elbow Flexion WFL WFL Wrist Extension WFL WFL Ceramic Maker Demonstrator WFL WFL (5= normal, 4= good, 3= fair, 2= poor, 1= trace) ROM: Both upper extremities, WFL Sensation: Intact, No concerns Functional Transfer: Assistive Device: Front wheeled walker/4WW Transfer Ability: Mod (I) ADL: Upper body dressing: Assistive device: Upper body dressing ability: Independent Lower body dressing: Assistive device: Lower body dressing ability: Independent Toileting: Assistive device: Toilet Riser Toileting ability: Mod (I) Grooming/hygiene: Assistive device: Grooming ability: Independent Bathing: Assistive device: Extended tub transfer bench Bathing ability: Mod (I) Standardized Assessment: Brennan Index of Activities of Daily Livin/20 on initial evaluation (05/04). 20/20 on discharge date (05/10/17). ASSESSMENT: Jenn presented to [facility] s/p bilateral knee replacement requiring assist for all ADLs/mobility. She is (I) with all ADLs and has met all skilled OT goals. All recommended AE has been obtained and pt has meals to be delivered. Pt presents with no further questions/concerns at time of OT discharge. Problem List/Current Limitations: Pain Decreased strength Decreased ROM Short Term Goals: 1) Pt will be Mod (I) LB dressing. (I) UB dressing. GOAL MET. 2) Pt will be Mod (I) toileting. GOAL MET. 3) Pt will be (I) grooming/hygiene. GOAL MET. 4) Pt will be Mod (I) tub transfer/shower. GOAL MET. 5) Pt Brennan Index of ADLs score will increase by 2 points. GOAL MET. Claims Examiner Goals: Return home with HH vs. outpatient PT Patient Goals: Return to PLOF Rehabilitation Prognosis: Good Barriers to Discharge: Pain PLAN: Discharge home with outpatient PT and assist from friends. Thank you for this referral. If you have any questions, concerns, or comments about this report or plan, please contact me at . Jennifer Khan MS, OTR/L Occupational Therapist ADRIAN
[2017-05-10 17:20] VITALS: BP 150/80
[2017-05-10] MEDS ORDERED: ASPI-764 PO (19:41)
[2017-05-10] MEDS: ZOLPIDEM TARTRATE 5 MG TAB PO PRN (23:51)
[2017-05-11] MEDS: APAP/HYDROCODONE 325/7.5 TAB PO PRN ×3 (03:59→15:26)
[2017-05-11 07:20] VITALS: BP 142/85
[2017-05-11] MEDS: FAMOTIDINE 20 MG TAB PO SCH ×2 (08:56→21:10)
[2017-05-11] MEDS: CELECOXIB 200 MG CAP PO SCH ×2 (08:56→17:18)
[2017-05-11] MEDS: ASPIRIN 81 MG ENTERIC COATED PO SCH ×2 (08:57→17:18)
--- NOTE | 2017-05-11 15:30 | PT ECF NOTE ---
Type of Note: Discharge Summary Primary Medical Diagnosis: s/p B) TKA, pt is WBAT on B) LEs Physical Therapy Discharge Date: 05/11/17 SUBJECTIVE: Prior Hospitalization: [facility] 05/01/17-05/04/17 Prior Level of Function: Independent Prior Living Status: Motel, Assist by friends Community Services: No known needs Home Accessibility: All needs on one level- pt plans to d/c to [facility] with occasional assistance from friends. She will use public transportation to access OP PT appts. Equipment Owned: Rollator Medical Complications/Past Medical History: See EMR Psychosocial Support: Supportive friends Pain Scale (0-10): 10/07 OBJECTIVE: Strength: Knee strength <3/5 at this time, rest of LEs are WNL ROM: PROM: R) knee 0-96 degrees L) knee 0-115 degrees Sensation: WNL Other Neuro findings: None Bed Mobility: Randy with leg commercial collector Transfers: Randy with 4WW Gait: Randy x 300' with 4WW Stairs: Randy to asc/desc 4 stairs with railing Timed Up and Go (>12 seconds indicated increased risk for falls): 23 seconds ASSESSMENT: Pt has met all PT goals and is safe to d.c to [facility] from a mobility stand point. She demonstrates Randy with all functional mobility, as well as decreased need of assistance from others. She will benefit from OP PT at d/c. Problem List/Current Limitations: Pain Decreased activity jasmin Decreased strength Decreased ROM Decreased balance Short Term Goals: all goals met 1: Pt to complete bed mobility with Randy 2: Pt to complete transfers with Randy and least restrictive AD 3: Pt to ambulate 250' with Randy and least restrictive AD 4: Pt to asc/desc platform stair to simulate curb in community with SBA -- ( pt asc/desc 4 stairs with Randy) 5: Pt to be I) with use of CPM Usp Goals: Pt to d/c to [facility] with decreased risk of falls and need of assistance from others Patient Goals: "function better" Rehabilitation Prognosis: Good PLAN: The patient will discharge to [facility] with OP PT services and assistance from friends and public transportation Thank you for this referral. If you have any questions, concerns, or comments about this report or plan, please contact me at . Valeria Love, PT, DPT MTDD
[2017-05-11 16:15] VITALS: BP 137/84
[2017-05-12] MEDS: ZOLPIDEM TARTRATE 5 MG TAB PO PRN ×2 (00:17→23:10)
[2017-05-12] MEDS: APAP/HYDROCODONE 325/7.5 TAB PO PRN ×4 (00:17→20:51)
[2017-05-12] MEDS: FAMOTIDINE 20 MG TAB PO SCH ×2 (07:41→20:51)
[2017-05-12] MEDS: CELECOXIB 200 MG CAP PO SCH ×2 (07:41→17:16)
[2017-05-12] MEDS: ASPIRIN 81 MG ENTERIC COATED PO SCH ×2 (07:41→17:16)
[2017-05-12 07:49] VITALS: BP 124/84
[2017-05-12 16:00] VITALS: BP 128/83
[2017-05-12] MEDS ORDERED: ASPI-1471 PO (17:56)
[2017-05-12] MEDS ORDERED: ASPI81TA86 PO (18:01)
[2017-05-13] MEDS: APAP/HYDROCODONE 325/7.5 TAB PO PRN ×2 (03:47→09:02)
[2017-05-13 07:42] VITALS: BP 126/74
[2017-05-13] MEDS: FAMOTIDINE 20 MG TAB PO SCH (09:02)
[2017-05-13] MEDS: ASPIRIN 81 MG ENTERIC COATED PO SCH (09:02)
[2017-05-13] MEDS: CELECOXIB 200 MG CAP PO SCH (09:02)
--- NOTE | 2017-05-29 17:58 | DISCHARGE SUMMARY ---
REASON FOR ADMISSION Patient status post single stage bilateral knee replacement. Admitted to the extended care facility for ongoing safety and motility prior to discharge. HOSPITAL COURSE Patient does well on the ECF and slowly and steadily regains confidence and stability in her limbs with rehab per protocol. At the time of discharge the wound condition is benign. She is comfortable on p.o. pain medication. She is voiding and stooling normally. She was cleared by Therapy for safety and mobility. DISPOSITION Discharged home. FOLLOWUP With Dr. Mathew in one week in [facility]. DISCHARGE MEDICATIONS 1. Preop home meds at the usual dose. 2. Hydrocodone for pain. 3. Aspirin 325 mg po q.day times one month for DVT prophylaxis. DISCHARGE INSTRUCTIONS Outpatient therapy per protocol. Call immediately for fever, chills, wound problems, uncontrolled pain or other concerns. ADRIAN
== END 2017-05-13 12:50 | disposition home or self-care (01) | DRG 561 ==
LOC: SWB 10:05 → UNDOADMIN 10:05
PROVIDERS: ADMIT Orthopaedic Surgery; ATTEND Orthopaedic Surgery
DX: Z47.1 Aftercare following joint replacement surgery (principal); G47.00 Insomnia, unspecified; Z96.653 Presence of artificial knee joint, bilateral
CPT/HCPCS: 97161; 97165